=== PATIENT | male | born 1980 | race Hispanic/Latino ===

== ENCOUNTER 2020-11-21 18:41 | Emergency (ER) | payer OTHER ==
[2020-11-21] MEDS ORDERED: Lidocaine 2% w/Epinephrine 1:200K 20 ML VIAL ONE (19:48)
[2020-11-21] MEDS ORDERED: Boostrix 0.5 ML (Tdap) VIAL ONE (20:02)
[2020-11-21] MEDS ORDERED: Bacitracin 1 PK ONE (20:10)
== END 2020-11-21 20:10 | disposition home or self-care (01) ==
LOC: BURERS 18:41
DX: S61.512A Laceration without foreign body of left wrist, initial encounter (principal); Z23 Encounter for immunization; W45.8XXA Other foreign body or object entering through skin, initial encounter
CPT/HCPCS: 12002; 90471; 90715

== ENCOUNTER 2020-12-03 17:00 | Emergency (ER) | payer OTHER ==
[2020-12-03] MEDS ORDERED: Bacitracin 1 PK ONE (17:13)
== END 2020-12-03 17:23 | disposition home or self-care (01) ==
LOC: BURERS 17:00
DX: S61.512D Laceration without foreign body of left wrist, subsequent encounter (principal)

== ENCOUNTER 2022-08-28 17:47 | Emergency (ER) | payer OTHER ==
[2022-08-28] MEDS ORDERED: Bacitracin 1 PK ONE (18:16)
== END 2022-08-28 18:23 | disposition home or self-care (01) ==
LOC: BURERS 17:47
DX: S81.812A Laceration without foreign body, left lower leg, initial encounter (principal); W26.9XXA Contact with unspecified sharp object(s), initial encounter
CPT/HCPCS: 12002; 99283